=== PATIENT | female | born 1955 | race African-American/Black ===

== ENCOUNTER 2017-08-23 17:28 | Emergency (ER) | payer OTHER, MEDICAID ==
[~2017-08-23] VITALS: Ht 154.9 cm; Wt 60.0 kg
[~2017-08-23 17:28] MED LIST: ADVAI100I INH; ALBU.5I INH; ALBU0.086 INH; EMTR200 PO; PRED20 PO; ZITH250T PO
[2017-08-23 17:35] VITALS: BP 155/87; PULSE 127; RESP 18; TEMP 97.8; O2SAT 95
[2017-08-23] MEDS ORDERED: ALBU.5I NEB (17:42)
[2017-08-23] MEDS ORDERED: ADVA100A INH (17:42)
[2017-08-23] MEDS ORDERED: EMTR200 PO (17:42)
[2017-08-23] MEDS ORDERED: ACETAMINOPHEN/HYDROcodone 325 MG/5 MG TAB PO ONE (18:00)
[2017-08-23] MEDS ORDERED: TETANUS/DIPHTHERIA TOXOID ADULT 0.5 ML VIAL IM ONE (18:00)
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
[2017-08-23] MEDS ORDERED: NORC5TAB PO (19:06)
[2017-08-23] MEDS ORDERED: ONDANSETRON HCL 4 MG/2 ML VIAL IV PUSH ONE (19:15)
[2017-08-23] MEDS ORDERED: MORPHINE SULFATE 2 MG/ML INJ IV PUSH ONE ×2 (19:15)
--- NOTE | 2017-08-23 19:16 | PD ---
Physical Exam Date Seen by Provider: Aug 23, 2017 Narrative I was asked to repair a laceration to the scalp. LACERATION LOCATION: left posterior parietal scalp, oozing blood, contused. LENGTH: 1.5 cm NUMBER OF STITCHES/MOIRA: 4 REPAIR: The area of the laceration was prepped with Betadine. The laceration was infiltrated with 1% lidocaine without epinephrine. The wound was copiously irrigated and explored without evidence of foreign body, tendon injury or neurovascular injury. The wound was closed using moira. This was a single layer repair. The patient was advised to keep the dressing clean and dry. Patient tolerated the procedure well. Data Data Last Documented VS Vital Signs Date Time Temp Pulse Resp B/P (MAP) Pulse Ox O2 Delivery O2 Flow Rate FiO2 08/23/17 17:35 97.8 127 18 155/87 (109) [address] Brain W/O Iv Contrast(Rout) (08/23/17 ) Ct Cerv Spine W/O Contrast (08/23/17 ) Tetanus/Diphtheria Tox Adult (Tetanus/Di (08/23/17 18:00) Acetamin-Hydrocod 325-5 Mg ([place] 5-325 (08/23/17 18:00) Morphine Inj (Morphine Inj) (08/23/17 19:15) Morphine Inj (Morphine Inj) (08/23/17 19:15) Ondansetron Inj (Zofran Inj) (08/23/17 19:15) Ed Discharge Order (08/23/17 19:13) MDM Supervised Visit with PHOEBE: No Diagnosis Primary Impression: Cephalgia Additional Impressions: Closed head injury Laceration of head Patient Instructions: General Instructions Additional Instruction: Medications as directed. Follow-up with her primary physician. Please provide the patient and family a copy of the CT results at discharge. Follow-up with your primary physician. Scripts Hydrocodone-Acetaminophen ([place]) 5 Mg-325 Mg Tab 1 TAB PO Q6H Y for PAIN, #12 TAB 0 Refills Prov: Geoff Persaud MD 08/23/17 Disposition: 01 DISCHARGE HOME Condition: Stable Anika Collins Aug 23, 2017 19:16
== END 2017-08-23 21:10 | disposition home or self-care (01) ==
LOC: NEPC 17:28
DX: S09.90XA Unspecified injury of head, initial encounter (principal); S01.01XA Laceration without foreign body of scalp, initial encounter; M54.5 Low back pain; G89.29 Other chronic pain; J44.9 Chronic obstructive pulmonary disease, unspecified; M06.9 Rheumatoid arthritis, unspecified; J45.909 Unspecified asthma, uncomplicated; V09.20XA Pedestrian injured in traffic accident involving unspecified motor vehicles, initial encounter; Z21 Asymptomatic human immunodeficiency virus [HIV] infection status; Z23 Encounter for immunization
CPT/HCPCS: 12001; 70450; 72125; 90471; 90714; 96374; 96375; 99284; J2270; J2405

== ENCOUNTER 2017-08-25 12:51 | Emergency (ER) | payer OTHER, MEDICAID ==
[~2017-08-25] VITALS: Ht 154.9 cm; Wt 61.0 kg
[~2017-08-25 12:51] MED LIST changes: +ADVA100A INH; -ADVAI100I INH; -ALBU.5I INH; +ALBU.5I NEB; -ALBU0.086 INH; +NORC5TAB PO; -PRED20 PO; -ZITH250T PO
[2017-08-25 12:52] VITALS: BP 157/93; PULSE 107; RESP 18; TEMP 98.2; O2SAT 84
[2017-08-25] MEDS ORDERED: SODIUM CHLOR 0.9% 1000 ML INJ 1,000 ML IV ONE (14:52)
[2017-08-25] MEDS ORDERED: MORPHINE SULFATE 2 MG/ML INJ IV PUSH ONE ×2 (15:00→17:45)
[2017-08-25] MEDS ORDERED: ONDANSETRON HCL 4 MG/2 ML VIAL IVP ONE (15:00)
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
[2017-08-25 15:57] VITALS: BP_SYST 157; BP_SYST 177; BP_DIAS 72; BP_DIAS 79; RESP 20
[2017-08-25 16:24] LABS: BASOPHIL # 0.1 TH/MM3 (0-0.2); BASOPHIL % 0.8 % (0.0-2.0); EOSINOPHIL # 0.4 TH/MM3 (0-0.4); HEMATOCRIT 36.5 % (35.0-46.0); LYMPHOCYTE # 2.4 TH/MM3 (1.0-4.8); MEAN CELL VOLUME 89.7 FL (80.0-100.0); MEAN CORPUSCULAR HEMOGLOBIN 29.6 PG (27.0-34.0); MONO % 10.9 % (0.0-8.0); MONOCYTE # 1.1 TH/MM3 (0-0.9); NEUT % 60.3 % (16.0-70.0); PLATELET COUNT 281 TH/MM3 (150-450); RED BLOOD COUNT 4.07 MIL/MM3 (4.00-5.30); RED CELL DISTRIBUTION WIDTH 18.7 % (11.6-17.2)
--- NOTE | 2017-08-25 16:33 | RADRPT ---
EXAM DATE/TIME: 08/25/2017 16:07 [facility] COMPARISON: No previous studies available for comparison. INDICATIONS : Cough. MEDICAL HISTORY : None. SURGICAL HISTORY : None. ENCOUNTER: Initial ACUITY: 1 day PAIN SCORE: 0/10 LOCATION: Bilateral chest FINDINGS: A single portable frontal view the chest shows linear areas of consolidation within each lung base. R emaining lungs are clear. No effusions. Heart is normal in size. Bony structures are unremarkable. CONCLUSION: Linear consolidation at the bases likely relating to atelectasis. Gurjit Griffin Jr., MD on August 25, 2017 at 16:30 Board Certified Radiologist. This report was verified electronically.
[2017-08-25 16:34] LABS: BACTERIA, URINE FEW /hpf; BILIRUBIN, URINE NEG (NEG); BLOOD, URINE NEG (NEG); GLUCOSE,URINE NEG (NEG); HYALINE CAST, URINE 14 /lpf (RARE); KETONE, URINE TRACE mg/dL (NEG); NITRITE,URINE NEG (NEG); SQUAMOUS EPITHELIAL CELL URINE 2 /hpf (0-5); URINE COLOR YELLOW (YELLW/STRAW); URINE LEUKOCYTE ESTERASE NEG (NEG)
[2017-08-25 16:44] LABS: INTERNATIONAL NORMALIZED RATIO 1.1 RATIO; PROTHROMBIN TIME - PATIENT 10.9 SEC (9.8-11.6)
[2017-08-25 16:55] LABS: ALBUMIN 3.3 GM/DL (3.4-5.0); ALKALINE PHOSPHATASE 235 U/L (45-117); ALT (GPT) 89 U/L (10-53); AST (GOT) 83 U/L (15-37); BICARBONATE 31.9 MEQ/L (21.0-32.0); BLOOD UREA NITROGEN 14 MG/DL (7-18); CALCIUM 9.7 MG/DL (8.5-10.1); CHLORIDE 98 MEQ/L (98-107); GLOMERULAR FILTRATION RATE 103 ML/MIN (>89); GLUCOSE,RANDOM 91 MG/DL (74-106); MAGNESIUM 1.6 MG/DL (1.5-2.5); SODIUM (NA) 137 MEQ/L (136-145); TOTAL BILIRUBIN ADULT 0.4 MG/DL (0.2-1.0); TOTAL PROTEIN 7.9 GM/DL (6.4-8.2); TROPONIN I LESS THAN 0.02 NG/ML (0.02-0.05)
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
[2017-08-25 17:27] VITALS: BP 177/72; PULSE 104; RESP 18; O2SAT 98
[2017-08-25] MEDS ORDERED: POTASSIUM CHLORIDE 10 MEQ CONTROLLED RELEASE TAB PO ONE (17:30)
--- NOTE | 2017-08-26 21:55 | EKG ---
Date Performed: 08/25/2017 Time Performed: 16:02:13 PTAGE: 61 years EKG: SINUS TACHYCARDIA NONSPECIFIC T-WAVE ABNORMALITY ABNORMAL RHYTHM ECG PREVIOUS TRACING : 09/14/2011 22.51 Since the prior tracing, there has been no significant cantu DOCTOR: Masoud Montgomery Interpretating Date/Time 08/26/2017 21:52:57
== END 2017-08-25 18:53 | disposition home or self-care (01) ==
LOC: NEPC 12:51
DX: S09.90XD Unspecified injury of head, subsequent encounter (principal); R74.8 Abnormal levels of other serum enzymes; R94.31 Abnormal electrocardiogram [ECG] [EKG]; J44.9 Chronic obstructive pulmonary disease, unspecified; V49.9XXD Car occupant (driver) (passenger) injured in unspecified traffic accident, subsequent encounter; Z21 Asymptomatic human immunodeficiency virus [HIV] infection status
CPT/HCPCS: 70450; 71045; 80053; 81001; 82550; 83735; 84484; 85025; 85610; 85730; 93005; 96361; 96374; 96375; 96376; 99285; J2270; J2405; J7030

== ENCOUNTER 2017-08-31 11:08 | Emergency (ER) | payer MEDICAID ==
[2017-08-31 11:10] VITALS: BP 146/88; PULSE 120; RESP 24; TEMP 97.9; O2SAT 94
[2017-08-31 11:22] VITALS: PULSE 108; RESP 24; O2SAT 93
[2017-08-31] MEDS ORDERED: ACETAMINOPHEN/CODEINE 300 MG/30 MG TAB PO ONE (11:30)
--- NOTE | 2017-08-31 11:30 | PD ---
HPI Chief Complaint: Wound/Suture/Staple Re-Check Time Seen by Provider: 11:24 Travel History International Travel<30 days: No Contact w/Intl Traveler<30days: No Traveled to known affect area: No History of Present Illness HPI 61-year-old female presents for staple removal. She was seen here in August 23 and she had a laceration to left parietal scalp which was repaired with moira. She now presents requesting staple removal. She did go versus some pain at the site of the laceration request pain medication prior to having the moira removed. Pain is worse with palpation. She has no other complaints at this time. [facility] Past Medical History Arthritis: Yes (reumatoid arthritis) Asthma: Yes Autoimmune Disease: Yes (HIV POSITIVE-PREFERS FAMILY NOT TO KNOW/REUMATOID ARTHRITIS) Blood Disorders: Yes (HIV) Depression: No Heart Rhythm Problems: No Cancer: No Cardiovascular Problems: No High Cholesterol: No Chemotherapy: No Chest Pain: Yes Congestive Heart Failure: No Cirrhosis: No COPD: Yes Cerebrovascular Accident: No Diabetes: No Diminished Hearing: No Endocrine: No Gastrointestinal Disorders: Yes GERD: No Glaucoma: No Genitourinary: No Headaches: No Hepatitis: No Hiatal Hernia: No Hypertension: No Immune Disorder: Yes (HIV) Implanted Vascular Access Dvce: Yes Kidney Stones: No Musculoskeletal: Yes Neurologic: No Psychiatric: No Reproductive: No Respiratory: Yes Immunizations Current: Yes Migraines: No Myocardial Infarction: No Radiation Therapy: No Renal Failure: No Seizures: No Sickle Cell Disease: No Sleep Apnea: No Thyroid Disease: No Ulcer: No PNEUMOCCOCAL Vaccine (Year): 2 Menopausal: Yes : 3 Para: 2 Miscarriage: 1 : 0 Past Surgical History Abdominal Surgery: Yes (C/SECTION) AICD: No Appendectomy: No Arteriovenous Shunt: No Body Medical Devices: R KNEE PINS Cardiac Surgery: No Section: Yes Cholecystectomy: No Ear Surgery: No Endocrine Surgery: No Eye Surgery: No Genitourinary Surgery: No Gynecologic Surgery: Yes (C SECTION) Hysterectomy: Yes Insulin Pump: No Joint Replacement: No Neurologic Surgery: No Oral Surgery: Yes (ALL TEETH REMOVED) Pacemaker: No Thoracic Surgery: No Other Surgery: Yes (CYST REMOVED FROM RT BREAST) Social History Alcohol Use: No Tobacco Use: No (NOT SINCE 2004) Substance Use: No Allergies-Medications (Allergen,Severity, Reaction): Coded Allergies: No Known Allergies (Verified Adverse Reaction, Unknown, 08/31/17) Reported Meds & Prescriptions Reported Meds & Active Scripts Active Reported Advair Diskus Inh (Fluticasone-Salmeterol Inh) 100-50 Mcg/Blist Aer 1 Puff INH BID Rinse mouth after use. Albuterol Neb (Albuterol Sulfate) 2.5 Mg/0.5 Ml Neb 2.5 Mg NEB Q6HR NEB Note: The Albuterol Sulfate Inhalation Solution is concentrated and must be diluted. Read complete instructions carefully before using. Emtriva (Emtricitabine) 200 Mg Cap 200 Mg PO DAILY Review of Systems General / Constitutional: No: Fever, Chills Skin: Positive Other (positive for laceration, moira) Physical Exam Narrative GENERAL: Well-developed well-nourished female in no acute distress. SKIN: Warm and dry. Left parietal scalp laceration with [address], some scabbing noted. HEAD: Skin as noted above. Normocephalic. EYES: Pupils equal and round. No scleral icterus. No injection or drainage. MUSCULOSKELETAL: TLSO brace noted. NEUROLOGICAL: Awake and alert. No obvious cranial nerve deficits. Motor grossly within normal limits. Normal speech. Data Data Last Documented VS Vital Signs Date Time Temp Pulse Resp B/P (MAP) Pulse Ox O2 Delivery O2 Flow Rate FiO2 08/31/17 12:15 08/31/17 11:22 108 24 93 08/31/17 11:10 97.9 Orders Orders Acetamin-Codeine 300-30 Mg (Tylenol-Code (08/31/17 11:30) Ed Discharge Order (08/31/17 11:50) MDM Medical Decision Making Medical Screen Exam Complete: Yes Emergency Medical Condition: Yes Medical Record Reviewed: Yes Differential Diagnosis Staple removal, wound dehiscence, infected wound Narrative Course Tylenol 3 has been ordered. The moira were removed by the nurse. Stable for discharge. Diagnosis Primary Impression: Removal of moira Med/Other Pt SpecificInfo: No Change to Meds Disposition: 01 DISCHARGE HOME Condition: Stable Darian Connor Aug 31, 2017 11:30
== END 2017-08-31 12:16 | disposition home or self-care (01) ==
LOC: NEPK 11:08
DX: Z48.02 Encounter for removal of sutures (principal)
CPT/HCPCS: 99281